=== PATIENT | female | born 2005 | race Caucasian/White ===

== ENCOUNTER 2023-06-23 19:51 | Emergency (ER) | payer OTHER, SELFPAY ==
[2023-06-23 19:53] VITALS: BP 166/84; BMI 38.0
[2023-06-23] MEDS: LET TOPICAL ANESTHETIC GEL 3 ML TOPICAL (23:56)
[2023-06-24] MEDS: TORADOL 30 MG IV (00:33)
--- NOTE | 2023-06-24 00:34 | ED.GENMED ---
Addendum entered and electronically signed by Patsy Lo PA-C 06/27/23 09:00:
MRSA abscess culture
On doxycycline status post I&D, tetracycline resistant MRSA, should switch the patient to Levaquin or Bactrim
Patient was called and I left a message
Original Note:
History of Present Illness
General
Chief Complaint: Skin Problem
Source: patient and family (Mother)
Exam Limitations: none
Time Seen by Provider: 06/23/23 23:20
Nursing documentation reviewed up to this point in time: agreed with
Travel History
Have you had any contact with someone who has COVID-19?: No
Do you have any symptoms of coronavirus? Fever > 100 degrees, chills, cough, shortness of breath, sore throat, loss of taste or smell, muscle aches, or headache?: No
History of Present Illness
History of Present Illness:
This is a 18-year-old female who has no significant past medical history who first noted a small pimple left medial proximal thigh 5 days ago, then noticed local pain the following day. Local pain and induration have worsened since then and she
presented to urgent care this morning, diagnosed with a skin abscess and prescribed doxycycline for which she has had 2 doses thus far. There is a central area of eschar but no drainage and no attempt at incision and drainage at urgent care.
Surrounding area of erythema marked with a skin marker at urgent care and patient presents tonight with marked progression of erythema beyond well beyond original skin marker.
She does admit to intermittent chills and aches more so at nighttime and has been running intermittent low-grade fever.
No history of similar episodes of skin abscesses. No prior history of MRSA and no close contacts with similar symptoms.
She denies local trauma and has not attempted to squeeze nor pick at the skin abscess.
No history of diabetes and she takes no medicines on a daily basis.
She denies risk of .
Past History
Past History
ED Past Medical History: None
ED Past Surgical History: Other (Myringotomy tubes, wisdom teeth)
Social History
Tobacco: Non-smoker
Alcohol: None
Personal: Single
Living: with family
Employment: Student
Family History
Family History: Other (Noncontributory)
Phy Exam
Physical Exam
Physical Exam:
GENERAL: 18-year-old overweight female appears her stated age, bright and alert, pleasant, appears in no acute distress. Mother is accompanying.
EYE: anicteric
NECK: Supple, nontender, no meningismus, no significant adenopathy.
ENT: oral mucosa is moist. No rhinorrhea.
CARDIAC: Regular rate and rhythm. no murmur.
LUNGS: Clear breath sounds bilaterally, no acute respiratory distress, no wheezes/rales/rhonchi
ABDOMEN: Rotund, soft, nondistended, without focal tenderness, normoactive BS.
NEUROLOGICAL: Alert and oriented x3, no focal neuro deficits.
SKIN: Warm and dry, normal color. Left medial mid to proximal thigh has a 4 cm very firm indurated tender skin abscess with small central area of dried necrosis/crust. There is surrounding erythema that measures 16 cm x 13 cm that is locally warm
to touch. No lymphangitis. No inguinal adenopathy appreciated.
MUSCULOSKELETAL: No C/C/E. peripheral pulses are full and equal b/l. Full range of motion without difficulty.
PSYCH: Normal and appropriate interaction.
Course
Orders/Labs/Results
Orders:
Orders
06/23/23 23:28
Basic Metabolic Panel Urgent
Complete Blood Count/With Diff Urgent
Lactic Acid Urgent
Ketorolac [Toradol] 30 mg IV NOW STA
Lidocaine/Epinephrine/Tetracai [Let Topical Anesthetic Gel] 3 ml TOPICAL NOW STA
06/23/23 23:30
Blood Culture Q30M
ADE Source: Blood/Venous
Specimen Description:
06/24/23 00:30
Vancomycin [Vancocin] 2,000 mg 0.9% Sodium Chloride 500 ml [Nss] 500 ml IV NOW
06/24/23 00:32
Blood Culture Q30M
ADE Source: Blood/Venous
Specimen Description:
06/24/23 02:00
Wound Culture [Wound/Abscess/Other Culture] Urgent
ADE Source: Abscess
Specimen Description:
Date Specimen was Collected: 06/24/23
Time Specimen was Collected: 01:59
Comment: left medial thigh skin abscess
Abnormal Lab Results
06/24/23
00:32
Hgb 11.5 L g/dL
(12.0-16.0)
Hct 34.2 L %
(37.0-47.0)
MCV 79.9 L fL
(81.0-99.0)
MCH 26.9 L pg
(27.0-31.0)
Absolute Monos (auto) 0.8 H 10^3/uL
(0.1-0.6)
06/24/23 00:32
06/24/23 00:32
Vital Signs
Initial and Last Documented VS:
Initial Vital Signs
Temp Pulse Resp BP Pulse Ox
98.2 F 110 20 166/84 99
06/23/23 19:53 06/23/23 19:53 06/23/23 19:53 06/23/23 19:53 06/23/23 19:53
Last Documented Vital Signs
Temp Pulse Resp BP Pulse Ox
98.2 F 94 18 123/71 99
06/23/23 19:53 06/24/23 05:03 06/24/23 05:03 06/24/23 05:03 06/24/23 05:03
Procedures
Incision/Drainage/Joint Aspiration
Left Upper Medial Thigh:
Anethesia: topical- LET, 1% Lidocaine with Epi and Added Na bicarb to local
Preparation: cleaned with Betadine
Type of procedure: incise and drain
Nature of site: abscess
Description of abscess: less than 3cm (3 cm in size), involved incision and drainage
Loculations broken up: Yes
How much fluid was obtained?: large amount (moderate amount of purulent blood tinged material)
Fluid description: purulent and blood tinged
Treatment: left open for drainage and packed with gauze (1/4 inch gauze packing)
MDM/Problems Addressed
Differential Diagnosis Includes:
Patient presents with left medial thigh skin abscess with moderate surrounding erythema/cellulitis without evidence of lymphangitis.
Abscess is quite firm without fluctuance but is noted to have central dry crust.
Currently afebrile but reports intermittent low-grade fever and intermittent chills concerning for acute febrile illness, SIRS.
Will check labs including blood cultures, lactic acid.
Will give IV Toradol for pain and apply LET to abscess.
Although abscess is quite firm without fluctuance we will plan to unroof central crusted region to assist with drainage, +/- incision and drainage.
Will give an IV dose of vancomycin.
*Pulse Oximetry
Patient hypoxic: no
*Critical Care Note
Total Time (30-74mins, 75-104mins- exclusive of procedures): Not Applicable
Update Note
Update Note:
06/24/2023 0201 AM
Labs are reassuring with normal white blood cell count, unremarkable chemistries, normal lactic acid.
Left medial thigh abscess incised and drained a moderate amount of purulent blood-tinged material. Abscess cavity packed with 1/4 inch iodoform packing gauze.
Wound culture obtained.
IV vancomycin infusing.
With reassuring labs, no evidence of SIRS nor sepsis will plan for discharge to home with recommendations to continue doxycycline until completed.
Will add ibuprofen for as needed pain as well as a few Vicodin for moderate to severe pain.
Recommend local heat to area.
Patient has a follow-up appointment with PCP already arranged for tomorrow, Wednesday, June 24.
ED Attending Note
-
Portions of this chart may have been created with voice recognition software.� Occasional wrong word or��sound alike� substitutions may have occurred due to the inherent limitations of voice recognition software.
Discharge Plan
Departure
Patient Disposition: Home (Routine Discharge)
Date of Disposition: 06/24/23
Time of Disposition: 02:04
Patient with high blood pressure during this ER visit?: No
Condition: Good
Discharge Problem:
skin abscess left medial thigh
Instructions: Abscess Incision and Drainage (DC), Skin Abscess
Prescriptions:
New
ibuprofen 800 mg tablet
800 mg PO QIDPRN PRN (Reason: pain, fever) Qty: 30 0RF
hydrocodone-acetaminophen 5-300 mg tablet
1 tab PO Q8H PRN (Reason: Pain) Qty: 5 0RF
Referrals:
Josefa Ivey PA-C [Family Provider] - Keep scheduled appt
Interventions
Interventions:
*Risk Screen - Suicide Last Done: 06/23/23 19:53
*General Assessment Last Done: 06/24/23 01:00
*Neglect/Abuse Screening Last Done: 06/23/23 19:53
*ED COVID-19 Vaccine History Last Done: 06/23/23 19:53
*Nursing Disposition Last Done: 06/24/23 05:03
ED-Skin Assessment Last Done: 06/24/23 01:00
Discharge Date and Time
Discharge Date/Time: 06/24/23 05:05
Print Language: MACEDONIAN
[2023-06-24 00:41] LABS: % Basophils 0.3 % (0-2); % Eosinophils 1.1 % (0-6); % Immature Granulocytes 0.5 % (0-0.5); % Lymphocytes 30.6 % (20.5-51.1); % Monocytes 8.6 % (1.7-9.3); % Neutrophils 58.9 % (42.2-75.2); Absolute Eosinophils 0.1 10^3/uL (0-0.7); Absolute Lymphocytes 2.7 10^3/uL (1.2-3.4); Absolute Monocytes 0.8 10^3/uL (0.1-0.6); Absolute Neutrophils 5.2 10^3/uL (1.4-6.5); Hematocrit 34.2 % (37.0-47.0); Hemoglobin 11.5 g/dL (12.0-16.0); Mean Corp Hgb Conc. 33.6 g/dL (33.0-37.0); Mean Corpuscular Hgb 26.9 pg (27.0-31.0); Mean Corpuscular Volume 79.9 fL (81.0-99.0); Mean Platelet Volume 9.8 fL (7.4-10.4); Nucleated Red Blood Cells % 0 %; Platelet Count 330 10^3/uL (130-400); Red Blood Cell Count 4.28 10^6/uL (4.20-5.40); Red Cell Dist. Width 13.5 % (11.5-14.5); White Blood Cell Count 8.8 10^3/uL (4.8-10.8)
[2023-06-24 00:55] LABS: Blood Urea Nitrogen 9 mg/dl (7-17); Carbon Dioxide 23 mmol/L (22-30); Chloride 103 mmol/L (98-107); Estimated Creatinine Clearance > 125 ml/min; Glucose 96 mg/dl (70-99); Potassium 4.1 mmol/L (3.5-5.1); Sodium 137 mmol/L (135-145); eGFR > 60.00
[2023-06-24 01:00] VITALS: BP 127/79
[2023-06-24 01:11] LABS: Lactic Acid 0.7 mmol/L (0.7-2.0)
[2023-06-24] MEDS: VANCOCIN 540 MG IV (01:16)
[2023-06-24 05:03] VITALS: BP 123/71
--- NOTE | 2023-06-27 15:24 | ED.ADDNOTE ---
ED Addendum
ED Addendum
ED Addendum Note:
Patient did call back and spoke with another PA regarding the fact that her culture grew out MRSA and her family doctor already switched her over to Bactrim. There is no treatment change required
== END 2023-06-24 05:05 | disposition home or self-care (01) ==
LOC: EMR 19:51
PROVIDERS: EMERGENCY PHYSICIAN Emergency Medicine; FAMILY PHYSICIAN Physician Assistant Medical
DX: L02.416 Cutaneous abscess of left lower limb (principal); A49.02 Methicillin resistant Staphylococcus aureus infection, unspecified site
CPT/HCPCS: 99284; 96374; 10060; 96375; 80048; 83605; 85025; 87040; 87070; 87147; 87186; 87205